=== PATIENT | female | born 1980 | race Caucasian/White ===

== ENCOUNTER 2018-10-21 09:40 | Inpatient (IN) | payer OTHER ==
[~2018-10-21] VITALS: Ht 162.6 cm; Wt 69.9 kg
[2018-10-21] MEDS ORDERED: RINGERS SOLUTION,LACTATED 1,000 ML IV ONE (10:58)
[2018-10-21] MEDS ORDERED: OXYTOCIN 30 UNITS/LACT RINGERS 500 ML IV ONE (10:58)
[2018-10-21] MEDS ORDERED: LIDOCAINE/PF 1% 30 ML VIAL INJ PRN (11:00)
[2018-10-21] MEDS ORDERED: TERBUTALINE SULFATE 1 MG/ML VIAL SQ PRN (11:00)
[2018-10-21] MEDS ORDERED: CALC-1038 PO (11:15)
[2018-10-21] MEDS ORDERED: PREN1TAB80 PO (11:15)
[2018-10-21] MEDS: BETAMETHASONE SOLUSPAN 6 MG/ML 5 ML VIAL IM SCH ×2 (11:58→23:50)
[2018-10-21] MEDS: RINGERS SOLUTION,LACTATED 1,000 ML IV SCH ×2 (12:16→21:27)
[2018-10-21] MEDS: AMPICILLIN SODIUM 2 GM/NS 100 ML IV SCH ×2 (12:58→18:59)
[2018-10-21] MEDS ORDERED: AZITHROMYCIN 500 MG/NS 250 ML IV ONE (13:30)
[2018-10-21] MEDS ORDERED: NIFEdipine 10 MG CAPSULE PO ONE (15:00)
[2018-10-21 15:02] LABS: BASOPHILS % (AUTO) 0.2 % (0.0-2.0); EOSINOPHILS % (AUTO) 0.2 % (1.0-6.0); HEMATOCRIT 35.5 % (36-46); LYMPHOCYTES # (AUTO) 1.5 K/uL (1.0-4.8); LYMPHOCYTES % (AUTO) 13.2 % (22.0-44.0); MEAN CORPUSCULAR HEMOGLOBIN 31.3 pg (26.0-34.0); MEAN CORPUSCULAR HGB CONC 33.7 G/dL (31.0-37.0); MEAN CORPUSCULAR VOLUME 93 fL (80-100); MONOCYTES # (AUTO) 0.4 K/uL (0.1-1.0); MONOCYTES % (AUTO) 3.7 % (2.0-9.0); NEUTROPHILS # (AUTO) 9.2 K/uL (1.8-7.7); NEUTROPHILS % (AUTO) 82.7 % (40.0-70.0); PLATELET COUNT (AUTO)-OB 227 K/uL (150-450); RED BLOOD CELL COUNT(AUTO) 3.83 MIL/uL (4.00-5.20); RED CELL DISTRIBUTION WIDTH 13.2 % (11.5-14.5)
[2018-10-21 17:56] VITALS: BP 129/85
[2018-10-21] MEDS ORDERED: AZITHROMYCIN 250 MG TABLET PO ONE (19:30)
[2018-10-22] MEDS ORDERED: OXYTOCIN 30 UNITS/LACT RINGERS 500 ML IV PRN
[2018-10-22] MEDS: AMPICILLIN SODIUM 2 GM/NS 100 ML IV SCH ×2 (00:56→06:33)
[2018-10-22] MEDS ORDERED: LIDOCAINE/PF 2% 5 ML VIAL ONE (02:42)
[2018-10-22] MEDS ORDERED: ROPIVACAINE HCL/PF 0.2% 100 ML ED ONE (02:43)
[2018-10-22] MEDS ORDERED: NALBUPHINE HCL 10 MG/ML VIAL IVP PRN (03:00)
[2018-10-22] MEDS ORDERED: ONDANSETRON HCL 4 MG/2 ML VIAL IVP PRN (03:00)
[2018-10-22] MEDS ORDERED: ROPIVACAINE HCL/PF 0.2% 100 ML ED PRN (03:00)
[2018-10-22] MEDS ORDERED: DiphenhydrAMINE HCL 50 MG/ML VIAL IVP PRN (03:00)
[2018-10-22] MEDS: RINGERS SOLUTION,LACTATED 1,000 ML IV SCH ×3 (03:02→12:05)
[2018-10-22] MEDS: FentaNYL CITRATE-PF 100 MCG/2 ML VIAL IVP PRN ×2 (12:29→12:39)
[2018-10-22] MEDS ORDERED: OXYTOCIN 30 UNITS/LACT RINGERS 500 ML IV ONE (12:57)
[2018-10-22] MEDS ORDERED: LIDOCAINE/PF 1% 30 ML VIAL INJ PRN (13:00)
[2018-10-22] MEDS ORDERED: OxyCODONE HCL/ACETAMINOPHEN 5-325 MG TABLET PO PRN ×2 (13:00)
[2018-10-22] MEDS ORDERED: GLYCERIN/WITCH HAZEL LEAF 40 PADS JAR TP PRN (13:00)
[2018-10-22] MEDS ORDERED: BENZOCAINE 20%/MENTHOL 56 GM SPRAY CANISTER TP PRN (13:00)
[2018-10-22] MEDS ORDERED: LANOLIN 7 GM OINTMENT TP PRN (13:00)
[2018-10-22] MEDS: IBUPROFEN 800 MG TABLET PO PRN ×2 (13:17→21:54)
[2018-10-22] MEDS: MAGNESIUM HYDROXIDE SUSPENSION 30 ML UDCUP PO PRN (20:33)
[2018-10-23 06:06] LABS: BASOPHILS % (AUTO) 0.2 % (0.0-2.0); EOSINOPHILS % (AUTO) 0.1 % (1.0-6.0); HEMATOCRIT 27.7 % (36-46); HEMOGLOBIN 9.7 g/dL (12.0-16.0); LYMPHOCYTES # (AUTO) 2.1 K/uL (1.0-4.8); LYMPHOCYTES % (AUTO) 11.7 % (22.0-44.0); MEAN CORPUSCULAR HEMOGLOBIN 32.4 pg (26.0-34.0); MEAN CORPUSCULAR HGB CONC 35.1 G/dL (31.0-37.0); MEAN CORPUSCULAR VOLUME 92 fL (80-100); MONOCYTES # (AUTO) 2.1 K/uL (0.1-1.0); MONOCYTES % (AUTO) 11.9 % (2.0-9.0); NEUTROPHILS # (AUTO) 13.6 K/uL (1.8-7.7); NEUTROPHILS % (AUTO) 76.1 % (40.0-70.0); PLATELET COUNT (AUTO)-OB 215 K/uL (150-450); RED CELL DISTRIBUTION WIDTH 13.3 % (11.5-14.5)
[2018-10-23] MEDS: IBUPROFEN 800 MG TABLET PO PRN (08:05)
[2018-10-23] MEDS: MAGNESIUM HYDROXIDE SUSPENSION 30 ML UDCUP PO PRN (09:33)
[2018-10-23] MEDS ORDERED: IBUP-2071 PO (11:37)
[2018-10-23] MEDS ORDERED: DSS100 PO (11:38)
[2018-10-23] MEDS ORDERED: FERR-89 PO (11:38)
== END 2018-10-23 12:30 | disposition home or self-care (01) | DRG 807 ==
LOC: 4S 09:40 → OBSVTOIN 09:40
PROVIDERS: ADMIT Obstetrics & Gynecology; ATTEND Obstetrics & Gynecology
PROC: 10D07Z3 Extraction of Products of Conception, Low Forceps, Via Natural or Artificial Opening (ICD-10-PCS; principal; 2018-10-22)
PROC: 0KQM0ZZ Repair Perineum Muscle, Open Approach (ICD-10-PCS; 2018-10-22)
PROC: 3E0R3BZ Introduction of Anesthetic Agent into Spinal Canal, Percutaneous Approach (ICD-10-PCS; 2018-10-22)
PROC: 00HU33Z Insertion of Infusion Device into Spinal Canal, Percutaneous Approach (ICD-10-PCS; 2018-10-22)
DX: O60.14X0 Preterm labor third trimester with preterm delivery third trimester, not applicable or unspecified (principal); Z37.0 Single live birth; O70.1 Second degree perineal laceration during delivery; O42.913 Preterm premature rupture of membranes, unspecified as to length of time between rupture and onset of labor, third trimester; Z3A.34 34 weeks gestation of pregnancy
CPT/HCPCS: 76811; 86850; 86900; 86901; J0290; J0456; J0702; J2590; J2795; J3010; J3490; J7120